=== PATIENT | male | born 2005 | race Caucasian/White ===

== ENCOUNTER 2024-01-01 12:21 | Emergency (ER) | payer OTHER, SELFPAY ==
[2024-01-01 12:42] VITALS: BP 104/71; PULSE 95; TEMP 37.3; O2SAT 97; BMI 19.5
[2024-01-01 13:09] LABS: Influenza Virus A Antigen Negative; Influenza Virus B Antigen Negative; Internal Control Within Normal Limits; SARS-CoV-2 Ag NEGATIVE (NEGATIVE); Strep A Antigen Screen Negative
--- NOTE | 2024-01-01 13:13 | ED_ITS ---
HPI HPI - General Adult General Chief complaint: Upper Respiratory Infection Stated complaint: flu like symptoms Time Seen by Provider: 01/01/24 13:11 Source: patient and family Mode of arrival: walk-in History of Present Illness HPI narrative: 18-year-old previously well male felt fine all weekend. He said he woke up this morning he had nausea and was vomiting. He did not have any diarrhea. He does have some chills aches and pains mild congestion. Mild headache but some better now. He said another family member was sick a couple days ago. He is not working and is not a student at this time. He has not run a fever. He has not been on any Lasix. He has not been hospitalized recently he is otherwise in good health Related Data Home Medications ?Medication ?Instructions ?Recorded ?Confirmed loratadine 10 mg tablet (Claritin) 10 mg PO DAILY 01/01/24 01/01/24 Allergies Allergy/AdvReac Type Severity Reaction Status Date / Time No Known Drug Allergies Allergy Verified 01/01/24 12:42 Opioid HPI Opioid Management Most Recent Opioid Data: No Data to Display Exam Narrative Exam Narrative: Well-hydrated well-nourished male who is vital signs are stable he does not appear ill or toxic. In an upright position his lungs were examined he has no wheeze rales or rhonchi. There is no cough or congestion. HEENT examination shows no rhinitis no facial swelling no stiffness of his neck. There is no conjunctivitis. No evidence of trauma or injury. His extremities appear normal with no joint complaints or pain or discomfort. Constitutional Vital Signs, click to edit/add: Last Vital Signs Temp 99.2 F 01/01/24 12:42 Pulse 95 H 01/01/24 12:42 Resp 15 01/01/24 12:42 BP 104/71 01/01/24 12:42 Pulse Ox 97 01/01/24 12:42 O2 Del Method Room Air 01/01/24 12:42 Course Vital Signs Vital signs: Vital Signs Temperature 99.2 F 01/01/24 12:42 Pulse Rate 95 H 01/01/24 12:42 Respiratory Rate 15 01/01/24 12:42 Blood Pressure 104/71 01/01/24 12:42 Pulse Oximetry 97 01/01/24 12:42 Oxygen Delivery Method Room Air 01/01/24 12:42 Temperature 99.2 F 01/01/24 12:42 Pulse Rate 95 H 01/01/24 12:42 Respiratory Rate 15 01/01/24 12:42 Blood Pressure 104/71 01/01/24 12:42 Pulse Oximetry 97 01/01/24 12:42 Oxygen Delivery Method Room Air 01/01/24 12:42 Medical Decision Making MDM Narrative Medical decision making narrative: Screening laboratory tests been done and his influenza screen is negative. I believe he does have a viral illness with no evidence of acute toxicity. He is advised to use Tylenol for fever control and use Zofran for any nausea. Lab Data Labs: Lab Results 01/01/24 Range/Units 12:45 Influenza Type A Ag Negative Influenza Type B Ag Negative SARS-CoV-2 Ag (CV2AG) Negative (NEGATIVE) Streptococcus Screen Negative Discharge Plan Discharge Stand Alone Forms: Portal Instructions Chief Complaint: Upper Respiratory Infection Clinical Impression: Upper respiratory infection Patient Disposition: Home, Self-Care Time of Disposition Decision: 13:18 Prescriptions / Home Meds: No Action loratadine [Claritin] 10 mg tablet 10 mg PO DAILY Print Language: [place]an Additional Instructions: Clear fluids only today while you remain nausea. May use Zofran. Tylenol for fever, aches and pains
== END 2024-01-01 13:36 | disposition home or self-care (01) ==
PROVIDERS: Emergency Provider Emergency Medicine Emergency Medical Services; PCP Nurse Practitioner
DX: J06.9 Acute upper respiratory infection, unspecified (principal); Z20.822 Contact with and (suspected) exposure to COVID-19
CPT/HCPCS: 87070; 87804; 87811; 87880; 99283